=== PATIENT | female | born 1955 | race Two or more races ===

== ENCOUNTER 2017-11-02 08:11 | Emergency (ER) | payer OTHER ==
[~2017-11-02] VITALS: Ht 170.2 cm; Wt 99.3 kg
[2017-11-02 08:18] VITALS: BP 137/85
== END 2017-11-02 08:25 | disposition home or self-care (01) ==
LOC: ER 08:16
DX: T78.49XA Other allergy, initial encounter (principal); X58.XXXA Exposure to other specified factors, initial encounter; I10 Essential (primary) hypertension; E11.9 Type 2 diabetes mellitus without complications; Z88.0 Allergy status to penicillin; Z88.1 Allergy status to other antibiotic agents
CPT/HCPCS: A4606; Z7610

== ENCOUNTER → 2018-05-21 | Emergency (ER) | payer OTHER ==
[~2018-05-21] VITALS: Ht 160 cm; Wt 98.0 kg
[~2018-05-21] MED LIST: ASPIRIN 81 MG TAB.CHEW ONE; ASPIRIN 81 MG TAB.CHEW PO ONE; hydrALAZINE HCL IV 20 MG VIAL ONE
--- NOTE | 2018-05-21 10:51 | NUR ---
PT WALKED INTO EMERGENCY ROOM WITH FAMILY MEMBER FOR CHEST PAIN SINCE THIS AM. PT STATES NOT FEELING WELL AND HIGH BLOOD PRESSURE TOOK ALL BLOOD PRESSURE MEDICATIONS PIV PLACED EVALUATED BY MD WOODS CONTINUE TO MONITOR.
[2018-05-21] MEDS: hydrALAZINE HCL IV 20 MG VIAL IV ONE ×2 (10:57→11:05)
--- NOTE | 2018-05-21 11:06 | NUR ---
BLOOD PRESSURE TAKEN BEFORE GIVING APRESOLINE MEDICATION HELD PER MD PACE
[2018-05-21 11:07] LABS: HEMATOCRIT 38 % (33-45); HEMOGLOBIN 12.8 g/dL (11.5-14.8); LYMPHOCYTES # (AUTO) 2.1 /CMM (0.8-4.8); LYMPHOCYTES % (AUTO) 42.9 % (20.0-44.0); MEAN CORPUSCULAR HGB CONC 34 g/dl (31.0-36.0); MEAN CORPUSCULAR VOLUME 88 fL (82-100); MONOCYTES # (AUTO) 0.2 /CMM (0.1-1.30); MONOCYTES % (AUTO) 4.9 % (2.0-12.0); NEUTROPHILS # (AUTO) 2.5 /CMM (1.8-8.9); NEUTROPHILS % (AUTO) 50.2 % (43.0-81.0); PLATELET COUNT (AUTO) 274 /CMM (150-450); RED BLOOD CELL COUNT(AUTO) 4.31 MIL/uL (4.0-5.2)
[2018-05-21 11:16] LABS: CALCIUM, SERUM 8.6 mg/dL (8.5-10.1); CARBON DIOXIDE 32 mmol/L (21-32); CHLORIDE 102 mmol/L (98-107); CREATININE 0.5 mg/dL (0.6-1.3); GLUCOSE 139 mg/dL (74-106); POTASSIUM 3.5 mmol/L (3.5-5.1); SODIUM SERUM 141 mmol/L (136-145); UREA NITROGEN, BLOOD 12 mg/dL (7-18)
[2018-05-21 11:28] LABS: B-TYPE NATRIURETIC PEPTIDE 109 PG/ML (0-125)
--- NOTE | 2018-05-21 12:16 | NUR ---
PT UPDATED ABOUT PLAN OF CARE , RESTING ON MONITOR WITHOUT CHEST PAIN WAITNG FOR SECOND TROPONIN DRAW AT 1300
[2018-05-21 13:47] VITALS: BP 154/92
--- NOTE | 2018-05-21 13:47 | NUR ---
PT DISCHARGED HOME WITH SON GIVEN LABS AND X-RAY REPORT PIV REMOVED WITH TIP INTACT
== END | disposition home or self-care (01) ==
LOC: ER 10:27
DX: I10 Essential (primary) hypertension (principal); E11.9 Type 2 diabetes mellitus without complications; Z90.49 Acquired absence of other specified parts of digestive tract; Z88.0 Allergy status to penicillin; Z88.1 Allergy status to other antibiotic agents
CPT/HCPCS: 36415; 71045-TC; 80048-TC; 83880; 84484-TC; 85025-TC; 85730-TC; A4606; J0360; Z7610

== ENCOUNTER 2021-02-03 14:54 | Emergency (ER) | payer MEDICARE, OTHER ==
[~2021-02-03] VITALS: Ht 152.4 cm; Wt 79.4 kg
[2021-02-03 15:04] VITALS: BP 141/90
[2021-02-03] MEDS ORDERED: IBUPROFEN 600 MG TABLET ONE (16:37)
[2021-02-03] MEDS: IBUPROFEN 600 MG TABLET PO ONE (16:39)
--- NOTE | 2021-02-03 17:46 | NUR ---
SUGAR TONG 3 INCH SPLINT APPLIED ON LEFT ARM, SHOULDER SLING IN PLACED.
== END 2021-02-03 17:47 | disposition home or self-care (01) ==
LOC: ER 15:03
DX: S52.572A Other intraarticular fracture of lower end of left radius, initial encounter for closed fracture (principal); S52.615A Nondisplaced fracture of left ulna styloid process, initial encounter for closed fracture; S00.511A Abrasion of lip, initial encounter; I10 Essential (primary) hypertension; E11.9 Type 2 diabetes mellitus without complications; Z88.0 Allergy status to penicillin; Z88.1 Allergy status to other antibiotic agents; W01.0XXA Fall on same level from slipping, tripping and stumbling without subsequent striking against object, initial encounter; Y93.89 Activity, other specified; Y92.89 Other specified places as the place of occurrence of the external cause; Y99.8 Other external cause status
CPT/HCPCS: 73110